=== PATIENT | male | born 1950 | race Caucasian/White ===

== ENCOUNTER → 2021-10-13 | Outpatient (CLI) | payer OTHER ==
[~2021-10-13] VITALS: Ht 175.3 cm; Wt 68.0 kg
[~2021-10-13] MED LIST: ASA81BEC PO; COZAAR 25 MG TA25 M1 PO; LIPITOR40 MG PO; MELOXICAM15 MG PO; METOPROLOL TART25 MG PO; NEURONTIN 300M300 M2 PO; OXYCODONE HCL5 M1 PO; TIZANIDINE HCL2 M1 PO
--- NOTE | 2021-10-15 17:07 | PATH ---
[facility] [address] [place] [address] PATHOLOGY RPT PROCEDURE Name: AMOS BURROUGHS Room #: REG RUDY Boucher.#: [id number] Admission: 10/13/21 Date of : 50 Discharge: Report #: [id number] Path Case #: [id number] [facility] Accession Number: [id number] . 01 Material submitted: . gastrointestinal site - GASTRIC BIOPSIES; R/O H. PYLORI . 01 Clinical history: . EGD VARICES ESOPHAGITIS, GASTRITIS . 01 Diagnosis: Gastric biopsy "gastric biopsy rule out H. pylori": - Mild chronic reactive gastropathy. - Immunoperoxidase stain for Helicobacter pylori is negative with appropriate control. . (SHA:riaz; 10/14/2021) QL 10/14/2021 1119 Local . 01 Electronically signed: . Adin Silva MD, Pathologist NPI- [id number] . 01 Gross description: . The specimen is received in formalin, labeled "Amos Burroughs, gastric biopsy-rule out H. pylori". Received are 4 segments of light tissue ranging in size from 0.3-0.4 cm in maximum dimensions. The specimen is entirely submitted in cassette A1. ([facility]; 10/13/2021) NRI/NRI 10/13/2021 1705 Local . 01 Pathologist provided ICD-10: K31.9 . 01 CPT . 972512, [id number] Specimen Comment: A courtesy copy of this report has been sent to [phone] Specimen Comment: Report sent to , DR ALMONTE Specimen Comment: A duplicate report has been generated due to demographic updates. Performed at: [address], [place] [id number] MD Adin Silva MD Phone: [phone]
== END ==
LOC: GI 06:30
PROVIDERS: ATTEND Internal Medicine
DX: K21.00 Gastro-esophageal reflux disease with esophagitis, without bleeding (principal); K76.6 Portal hypertension; K31.89 Other diseases of stomach and duodenum; I10 Essential (primary) hypertension; E78.00 Pure hypercholesterolemia, unspecified; I25.2 Old myocardial infarction; Z87.891 Personal history of nicotine dependence; Z79.899 Other long term (current) drug therapy; Z98.890 Other specified postprocedural states; Z20.822 Contact with and (suspected) exposure to COVID-19
CPT/HCPCS: 62110; 62900